=== PATIENT | female | born 1965 | race Caucasian/White ===

== ENCOUNTER → 2016-08-13 10:53 | Outpatient (CLI) | payer MEDICAID ==
[2016-03-25 09:34] VITALS: BMI 35.5
[~2016-08-13 10:53] MED LIST: AMBIEN10 MG PO; ATACAND HCT 32-1 TAB PO; CYMBALTA30 MG PO; HCTZ25 MG PO; HYDROCODONE-APA1 TAB PO; TYLENOL W/CODEI1 TAB PO; ULTRAM50 MG PO; ZANAFLEX4 MG PO; ZOLOFT100 MG PO
== END | disposition home or self-care (01) ==
LOC: D.MRI 10:53
DX: M25.511 Pain in right shoulder (principal)

== ENCOUNTER 2016-08-30 05:09 | Day surgery (SDC) | payer MEDICAID ==
[2016-08-27 11:26] LABS: BASOPHILS 0.3 % (0-2); EOSINOPHILS 1.7 % (0-7); HEMATOCRIT 40.2 % (36.0-48.0); HEMOGLOBIN 13.1 g/dL (12-16); IMMATURE GRANULOCYTES 0.5 % (0-5); LYMPHOCYTES 35.5 % (15-50); MCH 29.5 pg (26.0-34.0); MCHC 32.6 g/dL (31.0-37.0); MCV 90.5 fL (80.0-100.0); MONOCYTES 9.2 % (2-11); NEUTROPHILS 52.8 % (40-80); PLATELET COUNT 238 10x3/uL (130-400); RBC 4.44 10x6/uL (4.00-5.40); RDW 12.3 % (11.5-14.5); WBC 5.9 10x3/uL (4.8-10.8)
[2016-08-27 11:47] LABS: ANION GAP 9.7 mmol/L (8-16); CALCIUM 8.7 mg/dL (8.5-10.1); CARBON DIOXIDE 30.3 mmol/L (21.0-32.0); CREATININE - SERUM 0.9 mg/dL (0.6-1.3)
[~2016-08-30] VITALS: Ht 165.1 cm; Wt 97.5 kg
--- NOTE | ~2016-08-30 | OP ---
PATIENT NAME: JOHNNIE RINCON MEDICAL RECORD: [id number] :69 LOCATION:[facility] ADMISSION DATE: SURGEON: NIKHIL RAY MD DATE OF OPERATION: 08/30/2016 PREOPERATIVE DIAGNOSES: Rotator cuff tear of the right shoulder. POSTOPERATIVE DIAGNOSES: Rotator cuff tear of the right shoulder. PROCEDURE: Arthroscopic rotator cuff repair of the right shoulder, subacromial decompression, distal clavicle excision. SURGEON: Nikhil Ray MD ANESTHESIA: General. INTRAOPERATIVE COMPLICATIONS: None. SUMMARY OF PATHOLOGIC FINDINGS: The patient had recurrent anterior massive bone in the anterior aspect of the acromion as well as bone spur from the residual distal clavicle and a full thickness rotator cuff tear. OPERATIVE SUMMARY IN DETAIL: After obtaining the appropriate preoperative orthopedic surgical consent as well as anesthetic consultation, evaluation and clearance, the patient was brought to the operating room and placed on the operating table in supine position. After adequate general laryngeal mask was administered, the patient was placed in a right lateral decubitus position. All pressure points were well padded to include down leg peroneal pad as well as axillary roll. The patient was held firmly to the operating table using the vacuum pack suction system. The right upper extremity and shoulder were then prepped and draped in a routine sterile fashion. The arm was held in the Arthrex traction boom at 30 degrees of forward flexion, 30 degrees of abduction, and 10 pounds of traction laterally. Arthroscopy was established in the glenohumeral joint from the posterior portal. Anterior portal was established in the anterior safe interval. Diagnostic arthroscopy did reveal the above findings. A transarthroscopic rotator cuff portal was created for debridement of the rotator cuff tear. Attention was then turned to the subacromial space. While on subacromial space, again the undersurface of the acromion was denuded of all soft tissue elements. A 5-0 barrel bur was used to perform acromioplasty at the level of acromioclavicular joint. The distal clavicle was excised using 5-0 barrel bur from the accessory anterior portal under direct arthroscopic visualization to 1 cm. Further decortication was carried out for rotator cuff attachment. A single #2 FiberWire was placed in an inverted mattress style fashion. This was anchored laterally with a 4.75 SwiveLock from Arthrex. Having completed this, arthroscopy portals were closed in routine interrupted fashion using 4-0 Prolene, sterile dressings were applied. The patient was awakened and was taken to recovery in stable condition. All final needle and sponge counts were correct. TRANSINT:[id number] Voice Confirmation ID: [id number] DOCUMENT ID: [id number] OPERATIVE REPORT [id number] JOHNNIE RINCON MD, NIKHIL MCKEON CC: [id number] DICTATION DATE: 08/30/16 1506 STONE DECORATOR: 08/31/16 0020 [facility] 08/30/16 [id number] [place] [address]
[~2016-08-30 05:09] MED LIST changes: +CHILDREN'S ALLE30 M1; +EFFEXOR XR75 MG PO
[2016-08-30 12:34] VITALS: BP 119/67; Ht 165.1 cm; Wt 97.5 kg
[2016-08-30] MEDS ORDERED: DILAUDID2 MG PO (15:03)
== END 2016-08-30 17:15 | disposition home or self-care (01) ==
LOC: D.OPS 05:09 → D.PAN 09:30 → D.OPS 10:30 → D.PAN 13:00 → D.OPS 13:00
PROVIDERS: Anesthesiology
DX: M75.101 Unspecified rotator cuff tear or rupture of right shoulder, not specified as traumatic (principal); I10 Essential (primary) hypertension; M19.90 Unspecified osteoarthritis, unspecified site; Z01.812 Encounter for preprocedural laboratory examination

== ENCOUNTER → 2018-03-20 08:59 | Outpatient (CLI) | payer BC ==
[2016-08-30 12:34] VITALS: BMI 35.8
[~2018-03-20 08:59] MED LIST changes: +DILAUDID2 MG PO
== END | disposition home or self-care (01) ==
LOC: D.MRI 08:59
DX: M54.5 Low back pain (principal)

== ENCOUNTER → 2018-03-21 13:10 | Outpatient (CLI) | payer BC ==
[2016-08-30 12:34] VITALS: BMI 35.8
== END | disposition home or self-care (01) ==
LOC: D.MRI 03-20 09:00
DX: M54.5 Low back pain (principal)

== ENCOUNTER → 2018-06-22 10:46 | Outpatient (CLI) | payer MEDICAID ==
[~2018-06-22] VITALS: Ht 165.1 cm; Wt 105.9 kg
--- NOTE | ~2018-06-22 | HEMODYNAMI ---
PATIENT:JOHNNIE RINCON MEDICAL RECORD: [id number] : 69 LOCATION:[facility] ADMISSION DATE: 06/22/18 Generatedon:06/22/201813:16 Patient name: JOHNNIE RINCON Patient #: [id number] SSN: DO B: 1965 Date of study: 06/22/2018 Page: Of Hemodynamic Procedure Report Patient Data Patient Demographics Procedure consent was obtained First Name: JOHNNIE Gender: Female Last Name: MCKENZIE : 1965 Middle Initial: ELIAS Age: 53 year(s) Patient #: [id number] Race: Unknown Additional ID: [id number] Contact details [address]: [address] [place] [address] State: [place] City: [place] Zip code: [address] Past Medical History Allergies Allergen Reaction Date Comments Reported Other allergy 06/22/2018 [facility] Admission Admission Data Admission Date: 06/22/2018 Admission Time: 10:46 Height (in.): 65 BSA: 2.11 (m2) Height (cm.): 165.1 BMI: 38.77 (kg/m2) Weight (lbs.): 233 Weight (kg.): 105.69 Lab Results Lab Result Date: 06/22/2018 Lab Result Time: 11:45 Biochemistry Name Units Result Min Max BUN mg/dl 10 --(-*--)-- 7 18 Creatinine mg/dl 0.8 --(-*--)-- 0.6 1.3 CBC Name Units Result Min Max Hematocrit % 41.1 -*(----)-- 42 54 Hemoglobin g/dl 13.6 --(*---)-- 13.5 17.5 Procedure Procedure Types Cath Procedure Diagnostic Procedure [facility] w/Coronaries Procedure Description Procedure Date Procedure Date: 06/22/2018 Procedure Start Time: 13:06 Procedure End Time: 13:13 Procedure Staff Name Function Harpreet Jameson MD Performing Physician Zhou Butler RT Monitor Ysabel Garcia RT Scrub Buffie Armendariz RN Nurse Procedure Data Cath Procedure Fluoroscopy Diagnostic fluoroscopy Total fluoroscopy Time: 1.8 time: 1.8 min min Diagnostic fluoroscopy Total fluoroscopy dose: 335 dose: 335 mGy mGy Contrast Material Contrast Material Type Amount (ml) Isovue 300 32 Entry Location Entry Primary Successful Side Size Upsize Upsize Entry Closure Barrera ccessful Closure Location (Fr) 1 (Fr) 2 (Fr) Remarks Device Remarks Radial Right 6 Fr Mechanical artery Short Compression Estimated blood loss: 5 ml Diagnostic catheters Device Type Used For End Catheter Placement DIAGNOSTIC [place] 110cm 5 Procedure Fr catheter ([id number]) Procedure Complications No complications Procedure Medications Medication Administration Route Dosage Oxygen etCO2 Nasal cannula 2 l/min Lidocaine 2% added to field 20 Heparin Flush Bag added to field 2 bags (1000units/500ml NS) 0.9% NaCl I.V. 100 ml/hr Radial Cocktail I.A. 1 syringe (Verapomil 2mg/Nitro 400mcg/Heparin 1500units) Versed I.V. 2 mg Fentanyl I.V. 100 mcg Versed I.V. 2 mg Fentanyl I.V. 100 mcg Hemodynamics Rest BSA: 2.11 (m2) HGB: 13.6 (g/dl) O2 Consumption: Estimated: 217.62 (ml/min) O2 Co nsumption indexed: Estimated:103.14 (ml/min/m) Heart Rate: 85 (bpm) Pressure Samples Time Site Value (mmHg) Purpose Heart Use Rate(bpm) 13:09 LV 123/3,10 Snapshot 99 13:10 AO 115/77(95) Pullback 102 13:10 LV 111/9,9 Pullback 102 Gradients Valve Time Site 1 Site 2 Mean SEP/DFP Peak To Heart Use (mmHg) (sec/min) Peak Rate (mmHg) (bpm) Aortic 13:10 LV AO 0 102 111/9,9 115/77(95) Calculations Valve P-P Mean Valve Index Valve Source Name Gradient Area Flow (cm2) Aortic 0 0 Snapshots Pre Cath Intra NCS Post Cath Vital Signs Time Heart Resp SPO2 etCO2 NIBP (mmHg) Rhythm Pain Sedation Rate (ipm) (%) (mmHg) Status Level (bpm) 12:58:17 84 19 99 36.5 147/95(124) NSR 0 (11) 10(A) , No pain 13:02:24 82 20 97 35.7 136/91(110) NSR 0 (11) 10(A) , No pain 13:06:30 86 15 96 37.2 132/85(101) NSR 0 (11) 10(A) , No pain 13:10:38 98 15 96 33.5 125/72(97) NSR 0 (11) 9(A) , No pain 13:14:54 95 16 96 31.3 111/83(95) NSR 0 (11) 10(A) , No pain Medications Time Medication Route Dose Verified Delivered Reason Notes Effectiveness by by 13:01:49 Oxygen etCO2 2 l/min Harpreet Sewell used for Nasal [facility] Angel Armendariz RN procedure cannula 13:01:54 Lidocaine 2% added 20ml Harpreet Mullins for local to vial [facility] anesthetic field MD YANG 13:02:00 Heparin Flush added 2 bags Harpreet Mullins used for Bag to [facility] procedure (1000units/500ml field MD YANG NS) 13:02:10 0.9% NaCl I.V. 100 Harpreet Sewell Per ml/hr [facility] Angel Armendariz RN physician 13:02:21 Radial Cocktail I.A. 1 Harpreet Mullins for (Verapomil syringe [facility] vasodilation 2mg/Nitro MD YANG 400mcg/Heparin 1500units) 13:04:14 Versed I.V. 2 mg Harpreet Sewell for sedation [facility] Angel Armendariz RN, MD 13:04:20 Fentanyl I.V. 100 mcg Harpreet Sewell for sedation [facility] Angel Armendariz RN, MD 13:09:48 Versed I.V. 2 mg Harpreet Sewell for sedation [facility] Angel Armendariz RN, MD 13:09:52 Fentanyl I.V. 100 mcg Harpreet Sewell for sedation [facility] Angel Armendariz RN, MD Procedure Log Time Note 12:32:42 Signed procedure consent form obtained from patient. 12:32:43 Diagnostic Cath status Elective 12:32:44 Time tracking: Regular hours (M-F 7:00 - 5:00) 12:32:48 Plan of Care:Hemodynamics will remain stable., Cardiac rhythm will remain stable., Comfort level will be maintained., Respiratory function will remain adequate., Patient/ family verbilizes understanding of procedure., Procedure tolerated without complication., Recovers from procedure without complications.. 12:32:51 Buffie Armendariz RN sent for patient. Start room use. 12:32:58 H&P Date Dictated: 06/16/2018 Within 30 days and on chart., H&P Addendum completed by physician on day of procedure. (MUST COMPLETE FOR ALL OUTPATIENTS). 12:33:08 Patient allergic to Other allergyZPAK 12:33:13 Patient Height : 65 inches 12:33:17 Patient Weight : 233 lbs 12:48:37 Patient received from Pre/Post Procedure Room to CCL 1 Alert and oriented. Tansferred to table in Supine position. 12:48:39 Warm blankets applied, and thai hugger turned on for patient comfort. 12:48:40 Correct patient and procedure confirmed by team. 12:48:40 ECG and BP/O2 sat monitors applied to patient. 12:57:12 Vital chart was started 13:01:05 Baseline sample Acquired. 13:01:08 Rhythm: sinus rhythm 13:01:10 Full Disclosure recording started 13:01:11 Pre-procedure instructions explained to patient. 13:01:11 Pre-op teaching completed and patient verbalized understanding. 13:01:12 Family in waiting room. 13:01:14 Patient NPO since Breakfast. 13:01:20 Is the patient allergic to Iodine/contrast media? No. 13:01:21 Is patient on blood thinner?No 13:01:22 Patient diabetic? No. 13:01:24 Previous problem with sedation/anesthesia? No ? 13:01:25 Snore? Yes 13:01:26 Sleep apnea? No 13:01:27 Deviated septum? No 13:01:28 Opens mouth fully? Yes 13:01:29 Sticks out tongue? Yes 13:01:31 Airway obstruction? No ? 13:01:34 Dentures? Yes OUT 13:01:37 Pre procedure: right dorsailis pedis pulse 2+ Normal; easily identifiable; not easily obliterated 13:01:38 Patient pain scale 0/10 ?. 13:01:40 Modified Nic's test Ulnar < 7 seconds 13:01:44 IV patent on arrival in left antecubital with 0.9% NaCl at [facility]. 13:01:49 Oxygen 2 l/min etCO2 Nasal cannula was administered by Melodie Armendariz RN; used for procedure; 13:01:54 Lidocaine 2% 20ml vial added to field was administered by Harpreet Jameson MD; for local anesthetic; 13:02:00 Heparin Flush Bag (1000units/500ml NS) 2 bags added to field was administered by Harpreet Jameson MD; used for procedure; 13:02:10 0.9% NaCl 100 ml/hr I.V. was administered by Melodie Armendariz RN; Per physician; 13:02:21 Radial Cocktail (Verapomil 2mg/Nitro 400mcg/Heparin 1500units) 1 syringe I.A. was administered by Harpreet Jameson MD; for vasodilation; 13::49 Lab Result : BUN 10 mg/dl 13::49 Lab Result : Hemoglobin 13.6 g/dl 13::49 Lab Result : Creatinine 0.8 mg/dl 13::49 Lab Result : Hematocrit 41.1 % 13:02:52 Lab results completed and on chart. 13:02:54 Right Radial & Right Groin area was prepped with chlora-prep and draped in sterile fashion 13:02:56 Alarms reviewed by R. N. 13:02:56 Sharps counted by scrub and verified by R.N. 13:02:59 Use device set Radial Dx or PCI 13:03:00 ACIST Syringe (44089) opened to sterile field. 13:03:01 Medline Cath Pack ([id number]) opened to sterile field. 13:03:01 Bag Decanter (2002S) opened to sterile field. 13:03:02 ACIST Hand Control (05719) opened to sterile field. 13:03:03 ACIST Manifold (27219) opened to sterile field. 13:03:03 Tegaderm 4 x 4 (1626W) opened to sterile field. 13:03:04 MBrace Wrist Support ([id number]) opened to sterile field. 13:03:05 SHEATH 6FR Slender (01-9640) opened to sterile field. 13:03:06 DIAGNOSTIC WIRE .035 260cm J wire (772375) opened to sterile field. 13:03:11 Physician arrived 13:03:11 --------ALL STOP TIME OUT------ 13:03:11 Final Timeout: patient, procedure, and site verified with staff and physician. All members of the team are in agreement. 13:03:14 Right Radial & Right Groin site verified by team. 13:03:16 Maximum allowable Isovue 300 dose 300.ml. Physician notified. (300ml for normal creatinines. For patients with creatinine of 1.7 or higher multiply weight(kg) x 5 divided by creatinine.) 13:03:21 Fire Safety Assessment: A--An alcohol-based skin anteseptic being used preoperatively., C--Open oxygen or nitrous oxide is being used., D--An ESU, laser, or fiber-optic light is being used. 13:03:24 Physical assessment completed. ASA score P 2 - A patient with mild systemic disease as per Harpreet Jameson MD. 13:03:26 Sedation plan: IV Moderate Sedation Medication:Versed, Fentanyl 13:04:14 Versed 2 mg I.V. was administered by Melodie Armendariz RN; for sedation; 13:04:20 Fentanyl 100 mcg I.V. was administered by Melodie Armendariz RN; for sedation; 13:05:33 Zero performed for pressure channel P1 13:06:51 Procedure started. 13:06:57 Local anesthetic to right radial artery with Lidocaine 2% by Harpreet Jameson MD.INITIAL ACCESS ONLY 13:07:07 A 6 Fr Short sheath was inserted into the Right Radial artery 13:08:32 A DIAGNOSTIC [place] 110cm 5 Fr catheter (916003) was advanced over the wire and used for Procedure. 13:09:48 Versed 2 mg I.V. was administered by Melodie Armendariz RN; for sedation; 13:09:52 Fentanyl 100 mcg I.V. was administered by Melodie Armendariz RN; for sedation; 13:10:00 LV gram done using BROTHERS 13:10:02 Injector settings: Ml/sec: 5, Volume: 15, 13:10:04 LV hemodynamics recorded. 13:10:12 EF : 55 % 13:10:29 RCA angiography performed. 13:11:27 LCA angiography performed. 13:11:50 Catheter removed. 13:11:57 TR BAND Standard ([id number]) opened to sterile field. 13:12:11 Sheath removed intact; hemostasis achieved with Mechanical Compression to the Right Radial artery. 13:12:12 Procedure ended.(Physican Out) 13:12:42 Fluoroscopy time 01.80 minutes. 13:12:48 Fluoroscopy dose: 335 mGy 13:12:48 Flurop Dose total: 335 13:12:52 Contrast amount:Isovue 300 32ml. 13:12:54 Sharps counted by scrub and verified by R.N. 13:12:55 TR band inflated with 10cc of air. 13:12:56 Insertion/operative site no bleeding no hematoma. 13:13:02 Post right radial artery:stable, soft, clean and dry 13:13:04 Post Procedure Pulses reassessed and unchanged 13:13:06 Post-procedure physical assessment completed. ASA score P 2 - A patient with mild systemic disease as per Harpreet Jameson MD. 13:13:08 Post procedure rhythm: unchanged. 13:13:11 Estimated blood loss: 5 ml 13:13:12 Post procedure instruction explained to patient.Patient verbalizes understanding. 13:13:13 Patient needs reinforcement of post procedure teaching. 13:13:21 Procedure type changed to Cath procedure, Diagnostic procedure, LHC, LHC w/Coronaries 13:13:38 Procedure and supply charges have been captured, reviewed, submitted and are correct. 13:13:40 Procedure Complication : No complications 13:13:42 Vital chart was stopped 13:13:42 See physician's report for complete and final results. 13:13:44 Report given to Pre/Post Procedure Room. 13:13:47 Patient transfered to Pre/Post Procedure Room with Stretcher. 13:13:49 Procedure ended. 13:13:49 Full Disclosure recording stopped 13:13:54 End room use (Document Last) Device Usage Item Name Manufacture Quantity Catalog Hospital Part Current Minimal Lot# / Number Charge Number Stock Stock Serial# Code ACIST Acist 1 74785 [id number] 205169 331948 20 Syringe Medical (81280) Systems Inc Medline Medline 1 [id number] 462966 51317 364842 5 Cath Pack ([id number]) Bag Microtek 1 2001S 392832 27568 322577 5 Decanter Medical Inc. () ACIST Hand Acist 1 07834 039661 529916 746951 5 Control Medical (56428) Systems Inc ACIST Acist 1 47211 076280 237393 587264 5 Manifold Medical (26583) Systems Inc Tegaderm 4 3M 1 1626W 881245 710798 971589 5 x 4 (1626W) MBrace Advanced 1 140-0250-00 518409 28357 918631 5 Wrist Vascular Support Dynamics ([id number]) SHEATH 6FR Terumo 1 [id number] 985823 629103 297047 5 Slender (801060) DIAGNOSTIC St Javad 1 011700 710949 276446 890011 30 WIRE .035 260cm J wire (955967) DIAGNOSTIC Terumo 1 40-3473 854730 284157 719796 5 [place] 110cm 5 Fr catheter (365956) TR BAND Terumo 1 [id number] 962714 095003 468232 40 Standard ([id number]) Signature Audit [place] Stage Time Signature Unsigned Intra-Procedure 06/22/2018 Zhou Butler 1:16:45 PM RT(R) Signatures Monitor : Zhou Butler RT Signature : Date : Time : [address] [address]
[~2018-06-22 10:46] MED LIST changes: +EFFEXOR XR150 MG PO; +LINZESS290 MCG PO; +RANITIDINE HCL150 M1 PO
[2018-06-22 11:14] VITALS: BP 145/62; Ht 165.1 cm; Wt 105.9 kg
[2018-06-22 11:53] LABS: BASOPHILS 0.2 % (0-2); EOSINOPHILS 0.9 % (0-7); HEMATOCRIT 41.1 % (36.0-48.0); HEMOGLOBIN 13.6 g/dL (12-16); IMMATURE GRANULOCYTES 0.8 % (0-5); MCH 29.2 pg (26.0-34.0); MCHC 33.1 g/dL (31.0-37.0); MCV 88.4 fL (80.0-100.0); MEAN PLATELET VOLUME 9.4 fL (7.4-10.4); MONOCYTES 8.8 % (2-11); NEUTROPHILS 59.3 % (40-80); PLATELET COUNT 244 10x3/uL (130-400); RBC 4.65 10x6/uL (4.00-5.40); RDW 12.6 % (11.5-14.5); WBC 6.4 10x3/uL (4.8-10.8)
[2018-06-22 12:05] LABS: CALC OSMOLALITY 277 mosm/kg (275-300); CALCIUM 8.3 mg/dL (8.5-10.1); CARBON DIOXIDE 29.8 mmol/L (21.0-32.0); CHLORIDE - SERUM 105 mmol/L (98-107); CREATININE - SERUM 0.8 mg/dL (0.6-1.3); GLUCOSE 95 mg/dL (74-106); POTASSIUM - SERUM 3.9 mmol/L (3.5-5.1); SODIUM 140 mmol/L (136-145); UREA NITROGEN 10 mg/dL (7-18); eGFR NON AFRICAN AMERICAN 80 mL/min (90-120)
--- NOTE | 2018-06-22 13:15 | NUR ---
1315 RECIEVED TO ROOM VIA STRETCHER FROM GAUGER CHIEF WITH TR BAND TO R/WRIST CDI NO BLEEDING OR HEMATOMA NOTED. PATIENT DENIED CHEST PAIN ON ARRIVAL WITH HR OF 76 BP 138/72. FAMILY IS PRESENT AT BEDSIDE WILL MONITOR
--- NOTE | 2018-06-22 13:30 | NUR ---
TR BAND REMAINS CDI WITH VSS PATIENT RESTING QUIETLY NO DISTRESS
--- NOTE | 2018-06-22 13:45 | NUR ---
TR BAND TO R/WRIST IS CDI WITH CHEST PAIN DENIED PATIENT VOICED NO NEEDS AT THIS TIME
--- NOTE | 2018-06-22 14:09 | NUR ---
FAMILY AT BEDSIDE WITH PATIENT TR BAND TO R/WRIST IS CDI NO BLEEDING OR HEMATOMA NOTED. CALL LIGHT IS IN REACH
--- NOTE | 2018-06-22 14:30 | NUR ---
PATIENT CONTINUES TO REST WITH EYES CLOSED. VSS AND TR BAND TO R/WRIST IS CDI
--- NOTE | 2018-06-22 15:01 | NUR ---
REPOSITIONED TO SITTING WITH HOB UP 30 DEGREES. 3 CC AIR REMOVED FROM TR BAND WITH NO BLEEDING OR HEMATOMA NOTED. SANDWICH AND SODA TO BEDSIDE WITH NAUSEA DENIED
--- NOTE | 2018-06-22 15:18 | NUR ---
4 CC AIR REMOVED FROM TR BAND WITH NO BLEEDING OR HEMATOMA. PIV REMOVED WITH DRESSING APPLIED. PATIENT UP TO GET DRESSED FOR DISCHARGE HOME CHEST PAIN IS DENIED
--- NOTE | 2018-06-22 15:36 | NUR ---
4 CC AIR REMOVED FROM TR BAND WITH NO BLEEDING NOTED. VERBAL AND WRITTEN DISCHARGE GONE OVER WITH PATIENT AND FAMILY. TR BAND REMOVED WITH DRESSING APPLIED. PATIENT DENIED PAIN OR NEEDS. LEFT VIA WC TO PARKING FOR TRANSPORT HOME
--- NOTE | 2018-06-23 12:17 | OP ---
PATIENT NAME: JOHNNIE RINCON MEDICAL RECORD: [id number] :69 LOCATION:[facility] ADMISSION DATE: SURGEON: CLEMENTINA [place] MD DATE OF OPERATION: 06/22/2018 PROCEDURE: Left heart catheterization, selective coronary angiography, right radial approach. CATHETERS: Fortescue catheter, radial sheath. The procedure was well tolerated. The patient returned to the [place]. Sheath was removed. TR band was placed. FINDINGS: Left ventriculography in 30-degree BROTHERS view: Normal wall motion and normal systolic function. CORONARY ANATOMY: LEFT MAIN: Left main is free of disease. LAD: Free of disease in diagonal system. CIRCUMFLEX: Free of disease in the marginal system. RIGHT CORONARY ARTERY: Dominant artery, gives rise to PDA, free of disease. IMPRESSION: Normal LV systolic function, normal coronary anatomy. TRANSINT:[id number] Voice Confirmation ID: [id number] DOCUMENT ID: [id number] CLEMENTINA [place] MD at 1217 CC: [id number] DICTATION DATE: 06/22/18 1320 STRAIGHTENING MACHINE OPERATOR: 06/22/18 1417 DEP CLI 06/22/18 [id number] [place] [address]
== END | disposition home or self-care (01) ==
LOC: D.CATH 10:46
PROVIDERS: ATTEND Internal Medicine Interventional Cardiology
DX: I20.9 Angina pectoris, unspecified (principal); Z01.812 Encounter for preprocedural laboratory examination

== ENCOUNTER → 2019-12-07 08:33 | Outpatient (CLI) | payer OTHER ==
[2018-06-22 11:14] VITALS: BMI 38.8
== END | disposition home or self-care (01) ==
LOC: D.RAD 08:33
PROVIDERS: ATTEND Pediatrics
DX: Z02.71 Encounter for disability determination (principal)

== ENCOUNTER 2020-09-04 06:21 | Day surgery (SDC) | payer BC ==
[~2020-09-04] VITALS: Ht 165.1 cm; Wt 110.2 kg
--- NOTE | ~2020-09-04 | OP ---
PATIENT NAME: JOHNNIE OLIVARES MEDICAL RECORD: [id number] :69 LOCATION:[facility] ADMISSION DATE: SURGEON: NAOMI ROME MD DATE OF OPERATION: 09/04/2020 PREOPERATIVE DIAGNOSES: 1. Right knee pain. 2. Medial meniscus tear. 3. Chondromalacia. POSTOPERATIVE DIAGNOSES: 1. Right knee pain. 2. Medial meniscus tear. 3. Chondromalacia. PROCEDURE PERFORMED: Right knee scope with partial medial meniscectomy, chondroplasty, and limited synovectomy. INDICATIONS FOR THE PROCEDURE: Ms. Olivares is a 55-year-old female with history of right knee pain and meniscus tear. She has elected to undergo surgery for right knee arthroscopy. Risks, benefits, and alternatives of surgery were discussed with the patient and consent was obtained. DESCRIPTION OF THE PROCEDURE: The patient was met in the holding area where her identity and confirmation of procedure was performed. The right lower extremity was marked. She was taken to the operating room where she was placed supine on the operating table and anesthesia was administered. Tourniquet was applied to the right thigh and the right leg was positioned in the leg guerrero. Leg was then prepped and draped in a sterile fashion. The patient received preoperative antibiotics and a timeout was performed prior to initiating the case. Initiation of the case, the leg was exsanguinated and tourniquet was raised. Total tourniquet time was 29 minutes. We began with placement of our superior medial portal, inserted the cannula and filled the knee with fluid. We then placed our anterolateral portal and inserted the camera and placed our anterior medial portal under direct visualization. Diagnostic knee arthroscopy was performed. There was grade III chondromalacia at the undersurface of the patella and grade IV over the distal trochlea. The medial and lateral gutters were clear. Medial compartment showed grade III chondromalacia at the medial edge of the medial femoral condyle. There was grade II chondromalacia of the medial tibial plateau. There was a complex tear in the posterior horn of the medial meniscus. The ACL was intact. Lateral compartment showed a grade II chondromalacia of the lateral tibial plateau. The meniscus was in good condition and the lateral femoral condyle was okay as well. Chondroplasty was performed at the lateral tibial plateau. Tissue from the anterior knee was debrided with the shaver and limited synovectomy was performed of the infrapatellar fat pad. A biter was used to perform partial medial meniscectomy and the area was smoothed with the shaver. Chondroplasty was performed of the medial femoral condyle and the trochlea. We also performed chondroplasty of the undersurface of the patella. Before and after images were obtained. The instruments were removed and the fluid was drained from the knee. The portal sites were then closed with nylon suture. A sterile dressing was placed. The patient was turned back over to anesthesia where she was awakened and taken to the recovery room in stable condition. POSTOPERATIVE PLAN: The patient is going to return home with her family today. OPERATIVE REPORT [id number] MCKENZIEJOHNNIE GRIFFIN She may be weightbearing as tolerated on the right lower extremity. Plan to start physical therapy next week and we will see her back in clinic in 2 weeks. COMPLICATIONS: None. ESTIMATED BLOOD LOSS: 5 mL. ANESTHESIA: General. TRANSINT:[id number] Voice Confirmation ID: [id number] DOCUMENT ID: [id number] NAOMI ROME MD CC: [id number] DICTATION DATE: 09/04/20 1107 INFORMATION TECHNOLOGY ADVISOR: 09/04/20 1145 [facility] [address] [id number]
[~2020-09-04 06:21] MED LIST changes: +ALBUTEROL SULF8.5 GM INH; +CARAFATE1 G PO; +NEURONTIN600 MG PO; +OMEPRAZOLE40 MG PO; +PEPCID40 MG PO; +VOLTAREN100 GM TOPICAL
[2020-09-04 06:41] LABS: BASOPHILS 0.8 % (0-2); EOSINOPHILS 3.4 % (0-7); HEMATOCRIT 40.4 % (36.0-48.0); HEMOGLOBIN 13.4 g/dL (12-16); LYMPHOCYTES 44.4 % (15-50); MCH 28.7 pg (26.0-34.0); MCHC 33.3 g/dL (31.0-37.0); MCV 86.4 fL (80.0-100.0); MEAN PLATELET VOLUME 6.9 fL (7.4-10.4); MONOCYTES 10.2 % (2-11); NEUTROPHILS 41.2 % (40-80); PLATELET COUNT 257 10x3/uL (130-400); RBC 4.68 10x6/uL (4.00-5.40); RDW 12.8 % (11.5-14.5); WBC 5.1 10x3/uL (4.8-10.8)
[2020-09-04 06:46] LABS: ANION GAP 9.7 mmol/L (8-16); CREATININE - SERUM 1.1 mg/dL (0.6-1.3); POTASSIUM - SERUM 3.7 mmol/L (3.5-5.1)
[2020-09-04 09:42] VITALS: BP 133/71; Ht 165.1 cm; Wt 110.2 kg
--- NOTE | 2020-09-04 13:56 | NUR ---
DC TEACHING COMPLETE TO PT AND LARRY'. VERBALIZED UNDERSTANDING. PIV DC'D WITH CATHETER INTACT. LARRY' ASSISTING PT TO GET DRESSED 1430 PT DC'D VIA WC ACCOMPANIED BY THIS NURSE TO POV WITH ALL BELONGINGS AND DC PACKET WITH LARRY' DRIVING.
== END 2020-09-04 14:30 | disposition home or self-care (01) ==
LOC: D.OPS 06:21
PROVIDERS: Anesthesiology; ATTEND Orthopaedic Surgery
DX: M25.561 Pain in right knee (principal); S83.241A Other tear of medial meniscus, current injury, right knee, initial encounter; X58.XXXA Exposure to other specified factors, initial encounter; M94.261 Chondromalacia, right knee